=== PATIENT | male | born 1990 | race Caucasian/White ===

== ENCOUNTER 2016-03-18 21:24 | Emergency (ER) | payer MEDICAID ==
[2016-03-18] MEDS ORDERED: IBUPROFEN 800 MG TABLET PO STA (21:46)
[2016-03-18] MEDS ORDERED: IBUPROFEN 800 MG TABLET PO ONE (21:48)
== END 2016-03-18 21:55 | disposition home or self-care (01) ==
DX: S67.190A Crushing injury of right index finger, initial encounter (principal); W22.8XXA Striking against or struck by other objects, initial encounter
CPT/HCPCS: 29130; 73130; 99283; A9270

== ENCOUNTER 2016-03-20 19:01 | Emergency (ER) | payer MEDICAID ==
[2016-03-20] MEDS ORDERED: IBUPROFEN 600 MG TABLET PO STA (20:23)
[2016-03-20] MEDS ORDERED: CLINDAMYCIN 150 MG CAPSULE PO STA (20:23)
[2016-03-20] MEDS ORDERED: IBUPROFEN 600 MG TABLET PO ONE (20:29)
[2016-03-20] MEDS ORDERED: CLINDAMYCIN 150 MG CAPSULE PO ONE (20:29)
== END 2016-03-20 20:35 | disposition home or self-care (01) ==
DX: S67.190A Crushing injury of right index finger, initial encounter (principal); W22.8XXA Striking against or struck by other objects, initial encounter; F17.200 Nicotine dependence, unspecified, uncomplicated
CPT/HCPCS: 99283; A9270

== ENCOUNTER 2016-08-31 11:19 | Emergency (ER) | payer MEDICAID ==
--- NOTE | 2016-08-31 12:43 | ED Physician Documentation ---
PD HPI HEENT - Stated complaint Stated Complaint: TOOTH PX - Chief complaint Chief Complaint: General - History obtained from History obtained from: Patient - History of Present Illness Timing - onset: Today Timing - duration: Hours Timing - details: Gradual onset, Still present Location: Tooth Improves: Medication Worsens: Temperatures Associated symptoms: Facial swelling. No: Fever, Congestion, Rhinorrhea, Trismus, Unable to swallow, Swollen nodes, Headache, Cough Similar symptoms before: Has not had sx before Recently seen: Not recently seen - Additional information Additional information: Previously healthy 25-year-old male has developed some facial swelling in his left side he has a tooth with a hole in it and pain associated with touching that tooth. He has otherwise had good dental health and does not have a primary care doctor. Review of Systems Constitutional: denies: Fever Eyes: denies: Decreased vision Ears: denies: Ear pain Nose: denies: Rhinorrhea / runny nose, Congestion Throat: reports: Dental pain / toothache Respiratory: denies: Cough GI: denies: Vomiting Musculoskeletal: denies: Neck pain, Back pain, Extremity pain PD PAST MEDICAL HISTORY - Past Medical History Past Medical History: Yes Cardiovascular: None Respiratory: None Neuro: Headache/migraine Endocrine/Autoimmune: None GI: None : None HEENT: None Psych: Other Musculoskeletal: None Derm: None - Past Surgical History Past Surgical History: No - Present Medications Home Medications: Ambulatory Orders Medication Instructions Recorded Confirmed Acetaminophen [Tylenol] 650 mg PO Q4HR PRN #0 tablet 12/11/15 08/31/16 Ibuprofen [Motrin] 600 mg PO Q6H PRN #30 tab 03/20/16 08/31/16 Amoxicillin 500 mg PO TID #21 capsule 08/31/16 - Allergies Allergies/Adverse Reactions: Allergies Allergy/AdvReac Type Severity Reaction Status Date / Time tadalafil Allergy Severe Hives Verified 08/31/16 11:44 opioids Allergy Unknown Uncoded 08/31/16 11:46 - Social History Does the pt smoke?: Yes Smoking Status: Current every day smoker Does the pt drink ETOH?: No Does the pt have substance abuse?: Yes - Immunizations Immunizations are current?: Yes - POLST Patient has POLST: No PD ED PE NORMAL - Vitals Vital signs reviewed: Yes (Mild hypertension) - General General: No acute distress, Well developed/nourished - HEENT HEENT: Atraumatic, PERRL, EOMI, Ears normal, Other (#12 has a hole in it and the tooth is tender to palp. There is swelling to the gum overlying the tooth. ) - Neck Neck: Supple, no meningeal sign, No bony TTP - Respiratory Respiratory: No respiratory distress - Derm Derm: Normal color, Warm and dry, No rash - Extremities Extremities: No deformity, No edema - Neuro Neuro: No motor deficit, No sensory deficit - Psych Psych: Normal mood, Normal affect PD ED PE EXPANDED - HEENT HEENT Visual: 1 - swelling, tenderness Results - Vitals Vitals: Vital Signs - 24 hr 08/31/16 11:22 Temperature 37 C Heart Rate 78 Respiratory 16 Rate Blood Pressure 132/78 H O2 Saturation 100 Oxygen O2 Source Room air PD MEDICAL DECISION MAKING - ED course Complexity details: considered differential, d/w patient ED course: 25 y/o healthy male with a dental abscess and we will put him on some amoxicillin. Departure - Departure Disposition: 01 Home, Self Care Clinical Impression: Dental abscess Condition: Stable Instructions: ED Abscess Dental Follow-Up: [facility] [Provider Group] Prescriptions: Amoxicillin 500 mg PO TID #21 capsule
[2016-08-31 13:03] VITALS: BP 130/62
== END 2016-08-31 13:02 | disposition home or self-care (01) ==
LOC: ED 11:19
DX: K04.7 Periapical abscess without sinus (principal); F17.200 Nicotine dependence, unspecified, uncomplicated
CPT/HCPCS: 99283

== ENCOUNTER 2016-11-24 09:16 | Emergency (ER) | payer MEDICAID ==
--- NOTE | 2016-11-24 12:29 | XRAY Preliminary Report ---
Exam: XR Chest 2 View PA/LAT IMPRESSION: Normal 2-view chest radiography. [facility] SITE ID: [id number]
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
[2016-11-24 13:23] VITALS: BP 133/76
== END 2016-11-24 13:22 | disposition home or self-care (01) ==
LOC: ED 09:16
DX: S20.211A Contusion of right front wall of thorax, initial encounter (principal); V49.9XXA Car occupant (driver) (passenger) injured in unspecified traffic accident, initial encounter; Y93.39 Activity, other involving climbing, rappelling and jumping off; F17.200 Nicotine dependence, unspecified, uncomplicated
CPT/HCPCS: 71020; 99283

== ENCOUNTER 2016-11-29 18:54 | Emergency (ER) | payer MEDICAID ==
--- NOTE | 2016-11-29 19:20 | ED Physician Documentation ---
PD HPI CHEST PAIN - Stated complaint Stated Complaint: CHEST PX - Chief complaint Chief Complaint: Cardiac - History obtained from History obtained from: Patient - History of Present Illness Timing - onset: Other (26-year-old gentleman with no significant past medical history, does admit to using some methamphetamines this morning developed sharp left-sided chest pain radiating to the left arm with dyspnea that is now resolved but the chest pain continues mildly while shoveling at work today. Pain is not better or worse with any particular position. He has not traveled recently. No leg pain or swelling.) Review of Systems Ten Systems: 10 systems reviewed and negative Constitutional: denies: Fever, Chills Ears: reports: Reviewed and negative Nose: reports: Reviewed and negative Throat: reports: Reviewed and negative Cardiac: denies: Pedal edema, Calf pain Respiratory: denies: Hemoptysis PD PAST MEDICAL HISTORY - Past Medical History Cardiovascular: None Respiratory: None Neuro: Headache/migraine Endocrine/Autoimmune: None GI: None : None HEENT: None Psych: Other Musculoskeletal: None Derm: None - Past Surgical History Past Surgical History: No - Allergies Allergies/Adverse Reactions: Allergies Allergy/AdvReac Type Severity Reaction Status Date / Time tadalafil Allergy Severe Hives Verified 11/24/16 10:08 opioids Allergy Unknown Uncoded 08/31/16 11:46 - Social History Does the pt smoke?: Yes Smoking Status: Current every day smoker Does the pt drink ETOH?: No Does the pt have substance abuse?: Yes Substance Use and Type: Meth - Family History Family history: reports: CAD (Multiple family members with coronary disease including his father who needed a stent at age 39) - Immunizations Immunizations are current?: Yes - POLST Patient has POLST: No PD ED PE NORMAL - Vitals Vital signs reviewed: Yes - General General: Alert and oriented X 3, No acute distress - HEENT HEENT: PERRL, EOMI - Neck Neck: Supple, no meningeal sign, No bony TTP - Cardiac Cardiac: RRR, No murmur, Strong equal pulses (radial) - Respiratory Respiratory: No respiratory distress, Clear bilaterally - Abdomen Abdomen: Non tender - Back Back: No CVA TTP, No spinal TTP - Derm Derm: Normal color, Warm and dry - Extremities Extremities: No edema, No calf tenderness / cord - Neuro Neuro: Alert and oriented X 3, Normal speech Results - Vitals Vitals: Vital Signs - 24 hr 11/29/16 11/29/16 18:55 21:30 Temperature 36.6 C Heart Rate 98 92 Respiratory 20 16 Rate Blood Pressure 127/85 H 123/71 O2 Saturation 100 100 Oxygen O2 Source Room air - EKG (time done) 1906 Rate: Rate (enter#) (82) Rhythm: NSR [place]: Normal Intervals: Normal [place] QRS: LVH Ischemia: ST elevation c/w repol Computer interpretation: Agree with computer - Labs Labs: Laboratory Tests 11/29/16 11/29/16 11/29/16 19:17 19:17 19:17 WBC 24.1 H RBC 5.38 Hgb 15.7 Hct 45.6 MCV 84.7 MCH 29.2 MCHC 34.5 RDW 13.4 Plt Count 239 MPV 9.0 Neut # Not Reportable Lymph # Not Reportable [place] # Not Reportable Eos # Not Reportable Baso # Not Reportable Absolute Nucleated RBC Not Reportable Band Neuts % (Manual) 5 Nucleated RBC % Not Reportable Neutrophils # (Manual) 21.2 H Lymphocytes # (Manual) 1.7 Monocytes # (Manual) 1.2 H Platelet Estimate NORMAL (130-450,000) RBC Morph Micro Appear NORMAL APPEARANCE D-Dimer 847.9 H Sodium 138 Potassium 4.2 Chloride 98 L Carbon Dioxide 22 Anion Gap 18.0 H BUN 26 H Creatinine 1.5 H Estimated GFR (MDRD) 57 L Glucose 85 Lactic Acid Calcium 10.4 H Total Bilirubin 1.2 H AST 29 ALT 25 Alkaline Phosphatase 72 Troponin I Total Protein 9.0 H Albumin 5.8 H Globulin 3.2 Albumin/Globulin Ratio 1.8 Lipase 22 11/29/16 11/29/16 19:17 20:18 WBC RBC Hgb Hct MCV MCH MCHC RDW Plt Count MPV Neut # Lymph # [place] # Eos # Baso # Absolute Nucleated RBC Band Neuts % (Manual) Nucleated RBC % Neutrophils # (Manual) Lymphocytes # (Manual) Monocytes # (Manual) Platelet Estimate RBC Morph Micro Appear D-Dimer Sodium Potassium Chloride Carbon Dioxide Anion Gap BUN Creatinine Estimated GFR (MDRD) Glucose Lactic Acid 0.9 Calcium Total Bilirubin AST ALT Alkaline Phosphatase Troponin I < 0.04 Total Protein Albumin Globulin Albumin/Globulin Ratio Lipase - Rads (name of study) 2v chest Radiology: EMP read contemporaneously (NAD) CT PA Radiology: EMP read contemporaneously (normal) PD MEDICAL DECISION MAKING - ED course ED course: 26-year-old gentleman with history of episodic methamphetamine abuse, always smokes, never injects. Also a family history of coronary disease presents with acute atypical chest pain that seems musculoskeletal. It started while shoveling. His EKG is unremarkable and his troponin is negative. His white blood cell is quite high, 24,000 with mostly neutrophilic predominance but no bands. He also has mild acute renal insufficiency with a prerenal azotemia. He is administered IV fluids. Specific questions were asked about infection, there is no fever, sore throat, rhinorrhea, stomach pain, cough, urinary complaints, discharge, diarrhea, rash. Review of online literature suggest that you can get an idiopathic leukocytosis from methamphetamine abuse. This may have caused his chest pain as well, however by discharge she was chest pain-free. He required no intervention for the chest pain and actually declined medications for the chest pain. 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 He declined any further evaluation and treatment at that point wanted to go home. He was encouraged to follow-up with his physician for recheck and drink plenty of fluids in the interim. Departure - Departure Disposition: 01 Home, Self Care Clinical Impression: Dehydration Chest pain Qualifiers: Chest pain type: unspecified Qualified Code(s): R07.9 - Chest pain, unspecified Leukocytosis Qualifiers: Leukocytosis type: leukemoid reaction Qualified Code(s): D72.823 - Leukemoid reaction Condition: Good Record reviewed to determine appropriate education?: Yes Instructions: ED Chest Pain NonCardiac, ED Dehydration Comments: Drink plenty of fluids. Take it easy for the next day or so. Follow-up with your doctor in 2 days. Return if worse. Please do not take methamphetamines.
[2016-11-29 19:37] LABS: BASOPHILS % (AUTO) 0.3 %; EOSINOPHILS % (AUTO) 0.1 %; HCT - HEMATOCRIT 45.6 % (42.0-52.0); HGB - HEMOGLOBIN 15.7 g/dL (14.0-18.0); LYMPHOCYTES % (AUTO) 6.7 %; MEAN CORPUSCULAR HEMOGLOBIN 29.2 pg (27.0-31.0); MEAN CORPUSCULAR HGB CONC 34.5 g/dL (32.0-36.0); MEAN CORPUSCULAR VOLUME 84.7 fL (80.0-94.0); MONOCYTES % (AUTO) 5.1 %; NEUTROPHILS % (AUTO) 87.8 %; RED BLOOD COUNT 5.38 10^6/uL (4.70-6.10); RED CELL DISTRIBUTION WIDTH 13.4 % (12.0-15.0); UNCORRECTED WHITE BLOOD COUNT 24.1 x10^3/uL; WHITE BLOOD COUNT 24.1 x10^3/uL (4.8-10.8)
[2016-11-29 19:45] LABS: ALBUMIN/GLOBULIN RATIO 1.8 (1.0-2.2); BILIRUBIN,TOTAL 1.2 mg/dL (0.2-1.0); CALCIUM 10.4 mg/dL (8.5-10.3); CREATININE 1.5 mg/dL (0.6-1.2); POTASSIUM 4.2 mmol/L (3.5-5.0)
[2016-11-29 19:59] LABS: BAND NEUTROPHILS % (MANUAL) 5 %; LYMPHOCYTES % (MANUAL) 7 %; NEUTROPHILS % (MANUAL) 83 %
[2016-11-29 20:00] LABS: NP AUTO DIFFERENTIAL? YES; NP MAN DIFFERENTIAL? NO; PLATELET ESTIMATE, MANUAL NORMAL (130-450,000) (NORMAL)
--- NOTE | 2016-11-29 20:01 | XRAY Preliminary Report ---
Exam: XR Chest 2 View PA/LAT IMPRESSION: No acute intrathoracic plain film abnormality. [facility] SITE ID: [id number]
--- NOTE | 2016-11-29 20:04 | XRAY Report ---
EXAM: CHEST RADIOGRAPHY EXAM DATE: 11/29/2016 07:48 PM. CLINICAL HISTORY: Chest pain. COMPARISON: None. TECHNIQUE: 2 views. FINDINGS: Lungs/Pleura: No focal opacities evident. No pleural effusion. No pneumothorax. Normal volumes. Mediastinum: Heart and mediastinal contours are unremarkable. Other: None. IMPRESSION: No acute intrathoracic plain film abnormality. [facility] Referring Provider Line: [phone] SITE ID: [id number]
[2016-11-29] MEDS ORDERED: SODIUM CHLORIDE 0.9% 1,000 ML IV ONE (20:42)
[2016-11-29] MEDS ORDERED: IOPAMIDOL-300 100 ML VIAL ONE (20:53)
[2016-11-29] MEDS ORDERED: IOPAMIDOL-300 100 ML VIAL IVP ONE (21:21)
[2016-11-29 21:31] VITALS: BP 123/71
--- NOTE | 2016-11-29 21:47 | CT Preliminary Report ---
Exam: CT Chest Angio (PE) IMPRESSION: Normal pulmonary CT angiogram. No pulmonary emboli. [facility] SITE ID: [id number]
--- NOTE | 2016-11-29 21:50 | CT Report ---
EXAM: CT ANGIOGRAM CHEST EXAM DATE: 11/29/2016 09:22 PM. CLINICAL HISTORY: Chest pain, high dimer. COMPARISON: None. TECHNIQUE: Routine helical imaging was performed through the chest in the pulmonary arterial phase. I V Contrast: 80 cc Isovue 300. Reconstructions: Coronal 3-D MIP reconstructions.Sagittal and coronal. In accordance with CT protocol optimization, one or more of the following dose reduction techniques w ere utilized for this exam: automated exposure control, adjustment of mA and/or KV based on patient s ize, or use of iterative reconstructive technique. FINDINGS: Pulmonary Arteries: Diagnostic quality: Adequate through the segmental arteries. No evidence for acute or chronic pulmona ry emboli. RV/LV is within normal limits. There is no interventricular septal bowing. There is no reflux of cont rast material in the IVC. Lungs/Pleura: No consolidation, nodules, or edema. No effusions or pneumothorax. Mediastinum: Normal. No cardiac enlargement or adenopathy. Thoracic Aorta: Unremarkable. Upper Abdomen: Unremarkable. Other: None. IMPRESSION: Normal pulmonary CT angiogram. No pulmonary emboli. [facility] Referring Provider Line: [phone] SITE ID: [id number]
== END 2016-11-29 22:01 | disposition home or self-care (01) ==
LOC: ED 18:54
DX: E86.0 Dehydration (principal); R07.9 Chest pain, unspecified; D72.829 Elevated white blood cell count, unspecified; F17.200 Nicotine dependence, unspecified, uncomplicated; F15.10 Other stimulant abuse, uncomplicated; Z82.49 Family history of ischemic heart disease and other diseases of the circulatory system
CPT/HCPCS: 36415; 71020; 71275; 80053; 83605; 83690; 84484; 85025; 85379; 93005; 99284; Q9967; 87040

== ENCOUNTER 2017-06-17 20:47 | Emergency (ER) | payer MEDICAID ==
[2017-06-17 20:56] VITALS: BP 130/70
--- NOTE | 2017-06-17 21:58 | ED Physician Documentation ---
PD HPI LOWER EXT INJURY - Stated complaint Stated Complaint: STEPPED ON NAIL - Chief complaint Chief Complaint: Laceration - History obtained from History obtained from: Patient - History of Present Illness PD HPI LOW EXT INJURY LOCATION: Right, Foot Type of injury: Puncture wound Timing - onset: Unknown - Additional information Additional information: patient repeatedly falls asleep during H+P, thus limiting HPI and ROS. initially he cannot give me a clear, coherent reason for ED visit due to repeatedly falling asleep mid-sentence. eventually, he is able to tell me that he has increasing pain and swelling right foot due to puncture, nail went through his shoe into heel. uncertain when but he says somewhere over past several days Review of Systems Skin: reports: Other (right foot puncture) Musculoskeletal: reports: Extremity pain, Extremity swelling, Pain with weight bearing PD PAST MEDICAL HISTORY - Past Medical History Past Medical History: Yes Cardiovascular: None Respiratory: None Neuro: Headache/migraine Endocrine/Autoimmune: None GI: None : None HEENT: None Psych: None, Other Musculoskeletal: None Derm: None - Past Surgical History Past Surgical History: No - Present Medications Home Medications: Ambulatory Orders Medication Instructions Recorded Confirmed Albuterol Sulf [Ventolin Hfa 1 - 2 puffs INH Q4HR PRN #1 inhaler 02/10/17 Inhaler] Dexamethasone [Decadron] 4 mg PO DAILY #5 tablet 02/10/17 Doxycycline Monohydrate 100 mg PO BID #14 tablet 02/10/17 Tramadol HCl 50 mg PO Q6H PRN #15 tablet 02/10/17 Ciprofloxacin HCl [Cipro] 500 mg PO BID #14 tablet 06/17/17 - Allergies Allergies/Adverse Reactions: Allergies Allergy/AdvReac Type Severity Reaction Status Date / Time tadalafil Allergy Severe Hives Verified 06/17/17 20:56 opioids Allergy Unknown Uncoded 06/17/17 20:56 - Social History Does the pt smoke?: Yes Smoking Status: Current every day smoker Does the pt drink ETOH?: No Does the pt have substance abuse?: Yes - Immunizations Immunizations are current?: Yes - POLST Patient has POLST: No PD ED PE NORMAL - Vitals Vital signs reviewed: Yes - General General: Alert and oriented X 3, No acute distress, Well developed/nourished - HEENT HEENT: PERRL, EOMI - Extremities Extremities: Normal ROM s pain, No edema PD ED PE EXPANDED - Extremities Feet visual: 1 - tenderness (superficial puncture wound with mild tenderness. no erythema, fluctuance, discharge, or abnormal warmth to touch) Results - Vitals Vitals: Oxygen O2 Source Room air PD MEDICAL DECISION MAKING - ED course Complexity details: considered differential, d/w patient Departure - Departure Disposition: 01 Home, Self Care Clinical Impression: Puncture wound of foot Qualifiers: Encounter type: initial encounter Laterality: right Qualified Code(s): S91.331A - Puncture wound without foreign body, right foot, initial encounter Condition: Good Instructions: ED Wound Puncture Foot, ED Immunization Tetanus and FU Follow-Up: [facility] [Provider Group] [facility] [Provider Group] Prescriptions: Ciprofloxacin HCl [Cipro] 500 mg PO BID #14 tablet Discharge Date/Time: 06/17/17 22:17
[2017-06-17] MEDS ORDERED: TETANUS/DIPHTHERIA/PERTUSSIS 0.5 ML SYRINGE IM ONE (22:04)
[2017-06-17] MEDS ORDERED: CIPROFLOXACIN 250 MG TABLET PO STA (22:04)
== END 2017-06-17 22:17 | disposition home or self-care (01) ==
LOC: ED 20:47
DX: S91.331A Puncture wound without foreign body, right foot, initial encounter (principal); W45.0XXA Nail entering through skin, initial encounter; F17.200 Nicotine dependence, unspecified, uncomplicated
CPT/HCPCS: 90471; 90715; 99283; A9270

== ENCOUNTER 2017-08-16 19:25 | Emergency (ER) | payer MEDICAID ==
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
[2017-08-16 20:31] VITALS: BP 146/75
== END 2017-08-16 20:34 | disposition home or self-care (01) ==
LOC: ED 19:25
DX: S02.2XXA Fracture of nasal bones, initial encounter for closed fracture (principal); Y04.8XXA Assault by other bodily force, initial encounter; F17.200 Nicotine dependence, unspecified, uncomplicated
CPT/HCPCS: 99283

== ENCOUNTER 2017-11-27 23:35 | Emergency (ER) | payer MEDICAID ==
--- NOTE | 2017-11-28 00:50 | ED Physician Documentation ---
History of Present Illness - Stated complaint Stated Complaint: MHE - Chief complaint Chief Complaint: General - History obtained from History obtained from: Patient - History of Present Illness Timing: How many days ago (4 days) Pain level now: 0 - Additonal information Additional information: repeatedly falls asleep during HPI and ROS. c/o insomnia x 4 days. cannot provide more information as to why he came to ED for this at this time. Review of Systems Constitutional: denies: Fever Eyes: denies: Decreased vision Neurologic: denies: Headache, Head injury PD PAST MEDICAL HISTORY - Past Medical History Past Medical History: No Cardiovascular: None Respiratory: None Endocrine/Autoimmune: None GI: None : None HEENT: None Psych: None, Other Musculoskeletal: None Derm: None - Past Surgical History Past Surgical History: No - Present Medications Home Medications: Ambulatory Orders Medication Instructions Recorded Confirmed No Known Home Medications 11/27/17 11/27/17 - Allergies Allergies/Adverse Reactions: Allergies Allergy/AdvReac Type Severity Reaction Status Date / Time tadalafil Allergy Severe Hives Verified 11/27/17 23:44 opioids Allergy Unknown Uncoded 11/27/17 23:44 - Social History Does the pt smoke?: Yes Smoking Status: Current every day smoker Does the pt drink ETOH?: Yes Does the pt have substance abuse?: Yes - Immunizations Immunizations are current?: Yes - POLST Patient has POLST: No PD ED PE NORMAL - Vitals Vital signs reviewed: Yes - General General: No acute distress, Well developed/nourished, Other (drowsy; he awakens with verbal and tactile stimuli (often requires both at same time), answers questions but rapidly falls back asleep) - HEENT HEENT: Atraumatic, PERRL, EOMI, Moist mucous membranes - Neck Neck: Supple, no meningeal sign, No bony TTP - Cardiac Cardiac: RRR, No murmur - Respiratory Respiratory: No respiratory distress, Clear bilaterally - Derm Derm: Normal color, Warm and dry - Neuro Neuro: stores despatch hand 2-12 intact, No motor deficit, No sensory deficit, Other (drowsy but arousable to verbal/tactile; oriented x 3) Eye Opening: To Voice Motor: Obeys Commands Verbal: Oriented GCS Score: 14 Results - Vitals Vitals: Vital Signs - 24 hr 11/27/17 11/28/17 23:40 01:00 Temperature 36.9 C Heart Rate 80 74 Respiratory 18 14 Rate Blood Pressure 111/57 L 116/68 O2 Saturation 100 100 Oxygen O2 Source Room air PD MEDICAL DECISION MAKING - ED course Complexity details: reviewed old records, considered differential, d/w patient ED course: c/o insomnia x 4 days. He appears to be able to sleep well while in ED, and observed to be sleeping when left alone in room. I explained that I would not feel comfortable prescribing anything for sleep, as he appears to be sleeping well during ED stay. I encouraged him to follow-up in outpatient setting with his primary care provider (or clinic if he has no insurance). - Sepsis Event Vital Signs: Vital Signs - 24 hr 11/27/17 11/28/17 23:40 01:00 Temperature 36.9 C Heart Rate 80 74 Respiratory 18 14 Rate Blood Pressure 111/57 L 116/68 O2 Saturation 100 100 Oxygen O2 Source Room air Departure - Departure Disposition: 01 Home, Self Care Clinical Impression: Insomnia Qualifiers: Insomnia type: unspecified Qualified Code(s): G47.00 - Insomnia, unspecified Condition: Good Instructions: ED Insomnia Follow-Up: [facility] [Provider Group] [facility] [Provider Group] Discharge Date/Time: 11/28/17 01:00
[2017-11-28 01:47] VITALS: BP 116/68
== END 2017-11-28 01:00 | disposition home or self-care (01) ==
LOC: ED 23:35
DX: G47.00 Insomnia, unspecified (principal)
CPT/HCPCS: 99282; 99283